=== PATIENT | female | born 1975 | race Caucasian/White ===

== ENCOUNTER 2019-06-08 11:03 | Emergency (ER) | payer BC ==
[~2019-06-08] VITALS: Ht 162.6 cm; Wt 101.0 kg
[~2019-06-08 11:03] MED LIST: LOSA1TAB39 PO; MELO-100 PO
[2019-06-08] MEDS ORDERED: ondansetron/PF 4mg/2ml inj IV ONE (12:05)
[2019-06-08] MEDS ORDERED: morphine 4 MG/ML inj SYRINge IV ONE (12:05)
[2019-06-08] MEDS ORDERED: normal saline 1000ML IV soln IVB ONE (12:05)
[2019-06-08] MEDS ORDERED: diphenhydrAMINE 50 mg/ml inj IV ONE (12:15)
[2019-06-08 12:45] LABS: BASOPHILS % (AUTO) 0.4 % (0-1); EOSINOPHILS # (AUTO) 0.4 X10'3 (0-0.9); EOSINOPHILS % (AUTO) 4.6 % (0-6); HEMATOCRIT 38.3 % (35.0-45.0); HEMOGLOBIN 13.2 g/dl (12.0-16.0); LYMPHOCYTES # (AUTO) 2.5 X10'3 (1.1-4.8); LYMPHOCYTES % (AUTO) 29.3 % (21-51); MEAN CORPUSCULAR HEMOGLOBIN 29.7 PG (27.0-31.0); MEAN CORPUSCULAR HGB CONC 34.6 g/dL (33.0-36.5); MEAN PLATELET VOLUME 7.2 FL (7.4-10.4); MONOCYTES # (AUTO) 0.8 X10'3 (0-0.9); MONOCYTES % (AUTO) 9.2 % (2-12); NEUTROPHILS # (AUTO) 4.9 X10'3 (1.8-7.7); NEUTROPHILS % (AUTO) 56.5 % (42-75); PLATELET COUNT 298 X10'3 (140-440); RED BLOOD COUNT 4.45 X10'6 (4.20-5.60); RED CELL DISTRIBUTION WIDTH 13.7 % (11.5-14.5); WHITE BLOOD COUNT 8.6 X10'3 (4.5-11.0)
[2019-06-08 12:51] LABS: PARTIAL THROMBOPLASTIN TIME 26 SECONDS (22-32)
[2019-06-08] MEDS ORDERED: iohexol 300mg/ml 100ml inj. ONE (12:56)
[2019-06-08] MEDS ORDERED: MESSAGE TO NURSING PO NR (13:00)
[2019-06-08 13:26] LABS: CLARITY,URINE CLEAR (Clear); COLOR,URINE YELLOW (Yellow); GLUCOSE, URINE NEGATIVE (Neg); KETONES,URINE NEGATIVE (Neg); LEUKOCYTE ESTERASE ,URINE NEGATIVE (Neg); NITRITES, URINE NEGATIVE (Neg); OCCULT BLOOD,URINE NEGATIVE (Neg); PROTEIN,URINE NEGATIVE (Neg); UROBILINOGEN,URINE 0.2 E.U/dL (0.2-1.0)
[2019-06-08 13:27] LABS: UA COLLECTION TYPE CLN CATCH MIDSTREAM
--- NOTE | 2019-06-08 13:38 | NUR ---
PT ADVISED NOT TO TAKE HER METFORMIN FOR 48 HRS AFTER CONTRAST WAS USED TODAY WITH HER CT SCAN
[2019-06-08 13:53] LABS: ALANINE AMINOTRANSFERASE 239 U/L (12-78); ALBUMIN 3.8 G/DL (3.4-5.0); ALBUMIN/GLOBULIN RATIO 1.1 (1.1-1.5); ALKALINE PHOSPHATASE 117 IU/L (46-116); ANION GAP 9 (8-16); ASPARTATE AMINO TRANSFERASE 73 U/L (10-37); BILIRUBIN,TOTAL 0.3 MG/DL (0.1-1.0); BLOOD UREA NITROGEN 10 MG/DL (7-18); BUN/CREATININE RATIO 15.2 (6.6-38.0); CHLORIDE 106 MMOL/L (99-107); CREATININE 0.66 MG/DL (0.40-0.90); GLUCOSE 119 MG/DL (70-104); LIPASE 382 U/L (73-393); POTASSIUM 3.4 MMOL/L (3.5-5.1); SODIUM 143 MMOL/L (135-145); TOTAL CARBON DIOXIDE 27.7 MMOL/L (24-32); TOTAL PROTEIN 7.4 G/DL (6.4-8.2); eGFR > 90 ML/MIN
[2019-06-08 15:02] VITALS: BP 108/71
== END 2019-06-08 15:16 | disposition home or self-care (01) ==
LOC: ER 11:04
DX: R10.9 Unspecified abdominal pain (principal); I10 Essential (primary) hypertension; E11.9 Type 2 diabetes mellitus without complications; G89.29 Other chronic pain; Z90.49 Acquired absence of other specified parts of digestive tract; Z98.890 Other specified postprocedural states; Z90.710 Acquired absence of both cervix and uterus; Z88.5 Allergy status to narcotic agent; Z88.1 Allergy status to other antibiotic agents; Z79.899 Other long term (current) drug therapy
CPT/HCPCS: 36415; 74177; 80053; 81003; 83690; 85025; 85610; 85730; 96374; 96375; 99284; J1200; J2270; J2405; J7030; Q9967

== ENCOUNTER 2022-05-19 04:31 | Emergency (ER) | payer SELFPAY ==
[~2022-05-19] VITALS: Ht 167.6 cm; Wt 84.1 kg
[2022-05-19] MEDS ORDERED: ketorolac trometh. 30mg/ml inj. IV ONE (04:40)
[2022-05-19] MEDS ORDERED: acetaminophen 1,000mg/100ml IV 100 ML IV ONE (04:40)
[2022-05-19] MEDS ORDERED: normal saline 1000ML IV soln IV ONE (04:40)
[2022-05-19] MEDS ORDERED: LIDOcaine Viscous 15ml cup MM ONE (04:40)
[2022-05-19] MEDS ORDERED: ondansetron/PF 4mg/2ml inj IV ONE (04:40)
[2022-05-19] MEDS ORDERED: dexamethasone inj 10 MG in dextrose 5%-water 100 ML IV ONE (04:40)
[2022-05-19] MEDS ORDERED: dexamethasone sod phosphate 10mg/ml inj IV ONE (04:45)
[2022-05-19 05:43] LABS: BASOPHILS % (AUTO) 0.3 % (0-1); EOSINOPHILS # (AUTO) 0.2 X10'3 (0-0.9); EOSINOPHILS % (AUTO) 1.8 % (0-6); HEMATOCRIT 39.6 % (35.0-45.0); HEMOGLOBIN 13.4 g/dl (12.0-16.0); LYMPHOCYTES # (AUTO) 1.7 X10'3 (1.1-4.8); LYMPHOCYTES % (AUTO) 12.2 % (21-51); MEAN CORPUSCULAR HGB CONC 33.8 g/dL (33.0-36.5); MEAN CORPUSCULAR VOLUME 85.9 FL (78-98); MEAN PLATELET VOLUME 7.4 FL (7.4-10.4); MONOCYTES # (AUTO) 1.1 X10'3 (0-0.9); MONOCYTES % (AUTO) 7.9 % (2-12); NEUTROPHILS # (AUTO) 10.7 X10'3 (1.8-7.7); NEUTROPHILS % (AUTO) 77.8 % (42-75); PLATELET COUNT 303 X10'3 (140-440); RED BLOOD COUNT 4.61 X10'6 (4.20-5.60); RED CELL DISTRIBUTION WIDTH 13.1 % (11.5-14.5); WHITE BLOOD COUNT 13.7 X10'3 (4.5-11.0)
[2022-05-19] MEDS ORDERED: morphine 4 MG/ML inj SYRINge IV ONE (05:45)
[2022-05-19 05:50] LABS: ALANINE AMINOTRANSFERASE 32 U/L (12-78); ALBUMIN 4.1 G/DL (3.4-5.0); ALBUMIN/GLOBULIN RATIO 1.1 (1.1-1.5); ALKALINE PHOSPHATASE 130 IU/L (46-116); ANION GAP 10 (8-16); ASPARTATE AMINO TRANSFERASE 19 U/L (10-37); BILIRUBIN,TOTAL 0.7 MG/DL (0.1-1.0); BLOOD UREA NITROGEN 10 MG/DL (7-18); BUN/CREATININE RATIO 14.5 (6.6-38.0); CALCIUM 9.1 MG/DL (8.5-10.1); CHLORIDE 103 MMOL/L (99-107); CREATININE 0.69 MG/DL (0.40-0.90); GLUCOSE 96 MG/DL (70-104); MAGNESIUM 2.2 MG/DL (1.5-2.4); POTASSIUM 3.5 MMOL/L (3.5-5.1); SODIUM 138 MMOL/L (135-145); TOTAL PROTEIN 7.9 G/DL (6.4-8.2); eGFR > 90 ML/MIN
[2022-05-19] MEDS ORDERED: IBUP-2766 PO (05:59)
[2022-05-19] MEDS ORDERED: HYDR-3965 PO (05:59)
[2022-05-19] MEDS ORDERED: ONDA8TAB13 PO (05:59)
[2022-05-19 07:06] VITALS: BP 113/75
== END 2022-05-19 07:29 | disposition home or self-care (01) ==
LOC: ER 04:31
DX: B08.5 Enteroviral vesicular pharyngitis (principal); I10 Essential (primary) hypertension; E11.9 Type 2 diabetes mellitus without complications; G89.29 Other chronic pain; M54.9 Dorsalgia, unspecified; Z90.49 Acquired absence of other specified parts of digestive tract; Z88.5 Allergy status to narcotic agent; Z88.8 Allergy status to other drugs, medicaments and biological substances; Z88.1 Allergy status to other antibiotic agents; Z79.1 Long term (current) use of non-steroidal anti-inflammatories (NSAID); Z79.2 Long term (current) use of antibiotics
CPT/HCPCS: 36415; 71045; 80053; 83605; 83735; 84145; 85025; 87040; 93005; 96365; 96375; 99285; J0131; J1100; J1885; J2270; J2405; J7030